=== PATIENT | male | born 1995 | race Two or more races ===

== ENCOUNTER 2017-07-01 06:12 | Emergency (ER) | payer SELFPAY ==
[~2017-07-01] VITALS: Ht 170.2 cm; Wt 88.5 kg
[2017-07-01 08:16] VITALS: BP 153/96
[2017-07-01] MEDS ORDERED: IBUPROFEN 800 MG TAB PO ONE (08:45)
== END 2017-07-01 09:40 | disposition home or self-care (01) ==
LOC: ER 06:12
DX: S39.012A Strain of muscle, fascia and tendon of lower back, initial encounter (principal); S40.812A Abrasion of left upper arm, initial encounter; V43.52XA Car driver injured in collision with other type car in traffic accident, initial encounter; Y93.89 Activity, other specified; Y92.89 Other specified places as the place of occurrence of the external cause; Y99.8 Other external cause status
CPT/HCPCS: 71101